=== PATIENT | male | born 1980 | race African-American/Black ===

== ENCOUNTER 2022-12-04 18:28 | Emergency (ER) | payer OTHER ==
[~2022-12-04] VITALS: Ht 177.8 cm; Wt 91.6 kg
[~2022-12-04 18:28] MED LIST: METF500T PO
[2022-12-04 18:30] VITALS: BP 140/85; TEMP 98
[2022-12-04 19:01] LABS: PLATELET COUNT 268 K/uL (142-355)
[2022-12-04 19:06] LABS: POTASSIUM 4.1 mmol/L (3.6-5.2); SODIUM 137 mmol/L (136-145)
[2022-12-04 19:16] LABS: PARTIAL THROMBOPLASTIN TIME 28.7 SECONDS (23.9-36.7)
== END 2022-12-04 20:53 | disposition home or self-care (01) ==
LOC: ED 18:28
PROVIDERS: Family Medicine
DX: J40 Bronchitis, not specified as acute or chronic (principal); J18.9 Pneumonia, unspecified organism
CPT/HCPCS: 80053; 82550; 82948; 84484; 85027; 85379; 85610; 85730; 93005; 94664; 96372; 99284; J1815

== ENCOUNTER 2022-12-06 11:19 | Emergency (ER) | payer OTHER ==
[~2022-12-06] VITALS: Ht 177.8 cm; Wt 91.6 kg
[2022-12-06 12:14] LABS: PLATELET COUNT 255 K/uL (142-355)
[2022-12-06 12:20] LABS: POTASSIUM 4.2 mmol/L (3.6-5.2)
[2022-12-06 13:04] VITALS: BP 120/83; TEMP 97.9
== END 2022-12-06 13:10 | disposition home or self-care (01) ==
LOC: ED 11:19
PROVIDERS: Family Medicine
DX: J40 Bronchitis, not specified as acute or chronic (principal); R05.9 Cough, unspecified
CPT/HCPCS: 36415; 80053; 85027; 99282